=== PATIENT | male | born 1985 | race Hispanic/Latino ===

== ENCOUNTER 2020-12-21 11:25 | Emergency (ER) | payer OTHER ==
[~2020-12-21] VITALS: Ht 188 cm; Wt 103.9 kg
[2020-12-21 11:27] VITALS: BP 149/91
[2020-12-21] MEDS ORDERED: ACETAMINOPHEN WITH CODEINE 1 TAB TAB PO ONE (12:30)
[2020-12-21 12:37] LABS: BASOPHILS % (AUTO) 0.2 % (0.0-5.0); EOSINOPHILS % (AUTO) 4.5 % (0.0-8.0); HEMATOCRIT 44.8 % (42-54); LYMPHOCYTES % (AUTO) 25.4 % (21.0-51.0); MEAN CORPUSCULAR HEMOGLOBIN 30.4 pg (27.0-33.0); MEAN CORPUSCULAR HGB CONC 34.2 g/dL (32.0-36.0); MEAN CORPUSCULAR VOLUME 89.1 fL (79-99); NEUTROPHILS % (AUTO) 61.4 % (40.0-77.0); PLATELET COUNT (AUTO) 219 K/uL (130-400); RED BLOOD CELL COUNT(AUTO) 5.03 MIL/uL (4.50-6.20); RED CELL DISTRIBUTION WIDTH 13.1 % (11.0-15.5); WHITE BLOOD COUNT (AUTO) 8.3 K/uL (4.8-10.8)
[2020-12-21 12:49] LABS: CREATININE 0.7 mg/dL (0.5-1.5); POTASSIUM 4.7 mmol/L (3.5-5.1)
[2020-12-21 12:53] LABS: ALBUMIN 3.8 g/dL (3.5-5.0); BILIRUBIN,TOTAL 0.3 mg/dL (0.2-1.0); INR 0.99 (0.85-1.15); PROTHROMBIN TIME 10.8 SEC (9.6-11.6); TOTAL PROTEIN, SERUM 7.7 g/dL (6.0-8.3)
[2020-12-21 12:54] LABS: PARTIAL THROMBOPLASTIN TIME 25.9 SEC (26.3-35.5)
[2020-12-21] MEDS ORDERED: IBUP-1552 PO (14:04)
[2020-12-21 14:23] VITALS: BP 126/85
== END 2020-12-21 14:20 | disposition home or self-care (01) ==
LOC: EDH 11:25
DX: I82.812 Embolism and thrombosis of superficial veins of left lower extremity (principal); I83.893 Varicose veins of bilateral lower extremities with other complications; R03.0 Elevated blood-pressure reading, without diagnosis of hypertension; Z79.1 Long term (current) use of non-steroidal anti-inflammatories (NSAID)
CPT/HCPCS: 36415; 71045; 80053; 85025; 85610; 85730; 93971

== ENCOUNTER 2021-02-11 09:48 | Emergency (ER) | payer BC, OTHER ==
[~2021-02-11] VITALS: Ht 188 cm; Wt 103.9 kg
[~2021-02-11 09:48] MED LIST: IBUP-1552 PO
[2021-02-11 09:55] VITALS: BP 126/97
[2021-02-11] MEDS ORDERED: ORPHENADRINE CITRATE 30 MG/ML ML IV ONE (10:30)
[2021-02-11] MEDS ORDERED: KETOROLAC 30MG VIAL (30MG/ML) IV ONE (10:30)
[2021-02-11] MEDS ORDERED: KETOROLAC 30MG VIAL (30MG/ML) ONE (10:42)
[2021-02-11] MEDS ORDERED: ORPHENADRINE CITRATE 30 MG/ML ML ONE (10:42)
[2021-02-11] MEDS ORDERED: META800T72 PO (11:30)
[2021-02-11] MEDS ORDERED: NAPR-1180 PO (11:30)
== END 2021-02-11 11:50 | disposition home or self-care (01) ==
LOC: EDH 09:48
DX: S29.012A Strain of muscle and tendon of back wall of thorax, initial encounter (principal); Z79.1 Long term (current) use of non-steroidal anti-inflammatories (NSAID); X58.XXXA Exposure to other specified factors, initial encounter; Y93.89 Activity, other specified; Y92.89 Other specified places as the place of occurrence of the external cause; Y99.8 Other external cause status
CPT/HCPCS: 72070; 96374; 96375; 99284; J1885; J2360